=== PATIENT | female | born 1950 | race Caucasian/White ===

== ENCOUNTER 2023-06-11 15:23 | Emergency (ER) | payer MEDICARE, OTHER ==
[~2023-06-11] VITALS: Ht 167.6 cm; Wt 87.1 kg
[2023-06-11 16:59] VITALS: BP 159/98; PULSE 105; RESP 16; O2SAT 99
[2023-06-11 18:25] VITALS: TEMP 98.2
== END 2023-06-11 18:28 | disposition home or self-care (01) ==
LOC: ER 15:24
DX: J06.9 Acute upper respiratory infection, unspecified (principal); Z20.822 Contact with and (suspected) exposure to COVID-19; R19.7 Diarrhea, unspecified
CPT/HCPCS: 36415; 71045; 87502; 87503; 87811; 99284